=== PATIENT | male | born 1950 | race Caucasian/White ===

== ENCOUNTER 2019-05-13 13:43 | Outpatient (REF) | payer MEDICARE, SELFPAY ==
[2019-05-13 22:24] LABS: Anion Gap 10.9 mmol/L (3-11); BUN 24 mg/dL (7-18); CO2 26.1 mmol/L (21.0-32.0); CREATININE 1.08 mg/dL (0.70-1.30); Calcium 8.6 mg/dL (8.5-10.1); Calculated LDL 334 mg/dL (<100); Chloride 104 mmol/L (98-107); Cholesterol 409 mg/dL (<200); Glucose 99 mg/dL (74-106); HDL Cholesterol 54 mg/dL (40-60); Sodium 141 mmol/L (136-145); Triglyceride 106 mg/dL (<150)
[2019-05-15 11:52] LABS: Hepatitis C Ab w Rflx HCV PCR Negative (Negative)
== END 2019-05-13 14:03 ==
LOC: NCHCN 13:43
PROVIDERS: Visit Provider Nurse Practitioner Family
DX: E78.5 Hyperlipidemia, unspecified (principal); Z11.59 Encounter for screening for other viral diseases
CPT/HCPCS: 80048; 80061; 86803

== ENCOUNTER 2020-05-20 18:08 | Outpatient (REF) | payer MEDICARE, SELFPAY ==
[2020-05-20 21:32] LABS: ALT 33 U/L (16-63); AST 22 U/L (15-37); Albumin 3.7 g/dL (3.4-5.0); Alkaline Phosphatase 65 U/L (46-116); Anion Gap 8.3 mmol/L (3-11); BUN 32 mg/dL (7-18); Bilirubin, Total 0.6 mg/dL (0.2-1.0); CO2 27.7 mmol/L (21.0-32.0); CREATININE 1.2 mg/dL (0.70-1.30); Calcium 8.7 mg/dL (8.5-10.1); Calculated LDL 250 mg/dL (<100); Chloride 106 mmol/L (98-107); Cholesterol 352 mg/dL (<200); Estimated GFR 59.86 (mL/min/1.73m2); Glucose 103 mg/dL (74-106); HDL Cholesterol 52 mg/dL (40-60); Potassium 4.1 mmol/L (3.5-5.1); Sodium 142 mmol/L (136-145); TSH (W/Ref FT4) 1.87 uIU/mL (0.36-3.74); Total Protein 6.5 g/dL (6.4-8.2); Triglyceride 254 mg/dL (<150)
== END 2020-05-20 18:09 | disposition home or self-care (01) ==
LOC: NCHCN 18:08
PROVIDERS: PCP Nurse Practitioner Family; Visit Provider Nurse Practitioner Family
DX: E78.5 Hyperlipidemia, unspecified (principal)
CPT/HCPCS: 80053; 80061; 84443

== ENCOUNTER 2021-10-31 18:59 | Outpatient (REF) | payer MEDICARE, SELFPAY ==
[2021-10-31 19:16] LABS: Calculated LDL 249 mg/dL (<100); Cholesterol 348 mg/dL (<200); HDL Cholesterol 63 mg/dL (40-60); Triglyceride 184 mg/dL (<150)
[2021-10-31 19:29] LABS: Hemoglobin A1C 5.6 % (<5.7)
[2021-11-01 18:22] LABS: PSA, Screening 20.4 ng/mL (<=6.5)
[2021-11-02 11:03] LABS: Lyme Ab w Rflx to Lyme Confirm Negative (Negative)
[2021-11-09 19:27] LABS: Anaplasma phagocytophilum Negative (Negative); B. miyamotoi PCR Negative (Negative); Babesia divergens/MO-1 Negative (Negative); Babesia duncani Negative (Negative); Babesia microti Negative (Negative); Ehrlichia chaffeensis Negative (Negative); Ehrlichia ewingii/canis Negative (Negative); Ehrlichia muris eauclairensis Negative (Negative)
== END 2021-10-31 19:00 | disposition home or self-care (01) ==
LOC: NCHCN 18:59
PROVIDERS: PCP Nurse Practitioner Family; Visit Provider Nurse Practitioner Family
DX: E78.5 Hyperlipidemia, unspecified (principal); M54.2 Cervicalgia; M25.561 Pain in right knee; M25.562 Pain in left knee; R79.89 Other specified abnormal findings of blood chemistry; Z12.5 Encounter for screening for malignant neoplasm of prostate
CPT/HCPCS: 80061; 84153; 87798; 83036; 86618

== ENCOUNTER 2021-11-16 20:13 | Outpatient (REF) | payer MEDICARE, SELFPAY ==
[2021-11-17 19:44] LABS: PSA, Screening 18.9 ng/mL (<=6.5)
== END 2021-11-16 20:14 | disposition home or self-care (01) ==
LOC: NCHCN 20:13
PROVIDERS: PCP Nurse Practitioner Family; Visit Provider Nurse Practitioner Family
DX: R97.20 Elevated prostate specific antigen [PSA] (principal); Z12.5 Encounter for screening for malignant neoplasm of prostate
CPT/HCPCS: 84153

== ENCOUNTER 2022-11-13 13:21 | Outpatient (REF) | payer MEDICARE, SELFPAY ==
[2022-11-13 15:07] LABS: Calculated LDL 160 mg/dL (<100); Cholesterol 249 mg/dL (<200); HDL Cholesterol 61 mg/dL (40-60); Triglyceride 141 mg/dL (<150)
== END 2022-11-13 13:22 | disposition home or self-care (01) ==
LOC: NCHCN 13:21
PROVIDERS: PCP Nurse Practitioner Family; Visit Provider Family Medicine
DX: E78.5 Hyperlipidemia, unspecified (principal)
CPT/HCPCS: 80061

== ENCOUNTER 2023-03-14 13:37 | Outpatient (REF) | payer MEDICARE, SELFPAY ==
[2023-03-14 14:22] LABS: ESR 11 mm/hr (0-20)
[2023-03-14 14:35] LABS: C-Reactive Protein < 0.05 mg/dL (0.0-0.3)
[2023-03-14 22:29] LABS: Rheumatoid Factor <8.6 IU/mL (<12.0)
[2023-03-15 08:57] LABS: Lyme Ab w Rflx to Lyme Confirm Negative (Negative)
[2023-03-15 09:23] LABS: Cyclic Citrullinated Peptide <2.5 U/mL (<5.0)
== END 2023-03-14 13:38 | disposition home or self-care (01) ==
LOC: NCHCN 13:37
PROVIDERS: PCP Nurse Practitioner Family; Visit Provider Family Medicine
DX: M25.60 Stiffness of unspecified joint, not elsewhere classified (principal)
CPT/HCPCS: 85652; 86200; 86140; 86431; 86618

== ENCOUNTER 2023-11-06 15:49 | Outpatient (REF) | payer MEDICARE, SELFPAY ==
[2023-11-06 16:05] LABS: ALT 32 U/L (16-63); AST 26 U/L (15-37); Albumin 3.7 g/dL (3.4-5.0); Alkaline Phosphatase 82 U/L (46-116); BUN 21 mg/dL (7-18); Bilirubin, Total 0.83 mg/dL (0.2-1.0); CREATININE 1.1 mg/dL (0.70-1.30); Calcium 8.7 mg/dL (8.5-10.1); Calculated LDL 187 mg/dL (<100); Chloride 107 mmol/L (98-107); Cholesterol 266 mg/dL (<200); Estimated GFR 70.88 (mL/min/1.73m2); Glucose 93 mg/dL (74-106); HDL Cholesterol 67 mg/dL (40-60); Potassium 4.1 mmol/L (3.5-5.1); Sodium 142 mmol/L (136-145); Total Protein 6.7 g/dL (6.4-8.2); Triglyceride 62 mg/dL (<150)
== END 2023-11-06 15:50 | disposition home or self-care (01) ==
LOC: NCHCN 15:49
PROVIDERS: PCP Family Medicine; Visit Provider Family Medicine
DX: E78.5 Hyperlipidemia, unspecified (principal)
CPT/HCPCS: 80053; 80061

== ENCOUNTER 2024-11-19 15:59 | Outpatient (REF) | payer MEDICARE, SELFPAY | END 2024-11-19 16:00 | disposition home or self-care (01) | LOC: NCHCN 15:59 | PROVIDERS: PCP Family Medicine; Visit Provider Family Medicine | DX: R10.9 Unspecified abdominal pain (principal) | CPT/HCPCS: 87086 ==